=== PATIENT | male | born 1990 | race Caucasian/White ===

== ENCOUNTER 2019-02-19 01:28 | Emergency (ER) | payer OTHER ==
[~2019-02-19] VITALS: Ht 167.6 cm; Wt 81.7 kg
[2019-02-19 01:32] VITALS: BP 144/100
== END 2019-02-19 02:23 | disposition home or self-care (01) ==
LOC: ER 01:28
DX: F10.129 Alcohol abuse with intoxication, unspecified (principal); Z87.891 Personal history of nicotine dependence